=== PATIENT | male | born 1940 | race Caucasian/White ===

== ENCOUNTER → 2016-11-22 | Outpatient (CLI) | payer MEDICARE, BC ==
[2015-11-20 10:25] VITALS: BP 134/81
[~2016-11-22] MED LIST: ADULT LOW DOSE81 MG PO; CARDURA4 M1 PO; CYCLOBENZAPRINE10 M1 PO; FISH OIL1 IU PO; FLUTICASON0.05 MG/AC NS; FOSINOPRIL SODI PO; NIACIN500 M6 PO; OSTEO-BI-FLEX 21 TAB PO; PRILOSEC40 M1 PO; VESICARE10 MG PO; ZYLOPRIM 100MG100 MG PO
== END ==
LOC: LAB 09:00
DX: C61 Malignant neoplasm of prostate (principal); I10 Essential (primary) hypertension; E78.2 Mixed hyperlipidemia; N52.9 Male erectile dysfunction, unspecified; R20.2 Paresthesia of skin; M10.09 Idiopathic gout, multiple sites

== ENCOUNTER → 2016-11-25 | Outpatient (CLI) | payer MEDICARE, BC ==
[~2016-11-25] VITALS: Ht 182.9 cm; Wt 100.0 kg
[2016-11-25 10:38] VITALS: BP 131/86
== END ==
LOC: AMSURD 10:30
DX: I49.3 Ventricular premature depolarization (principal)

== ENCOUNTER → 2016-11-29 | Outpatient (CLI) | payer MEDICARE, BC ==
[2016-11-25 10:38] VITALS: BP 131/86
== END ==
LOC: LAB 11:33
DX: Z12.11 Encounter for screening for malignant neoplasm of colon (principal)

== ENCOUNTER → 2016-12-20 | Outpatient (CLI) | payer MEDICARE, BC ==
[2016-11-25 10:38] VITALS: BP 131/86
== END ==
LOC: RAD 14:21
DX: M54.12 Radiculopathy, cervical region (principal)

== ENCOUNTER → 2017-06-20 | Outpatient (CLI) | payer MEDICARE, BC ==
[2016-11-25 10:38] VITALS: BP 131/86
[2017-06-20 09:17] LABS: EOS # 0.4 (0.04-0.40); HEMATOCRIT 46.1 % (42.0-52.0); LYMPH# 1.3 (1.50-4.00); MEAN CELL VOLUME 100 fl (78-100); MEAN CORPUSCULAR HEMOGLOBIN 35 pg (27-31); MEAN CORPUSCULAR HGB CONC 35 g/dL (33-37); MEAN PLATELET VOLUME 10.3 fl (7.4-10.4); MONO # 0.5 (0.20-0.80); NEU # 4.2 (1.40-6.50); PLATELET COUNT 201 K/mm3 (130-400); RED BLOOD COUNT 4.59 M/mm3 (4.20-5.60); RED CELL DISTRIBUTION WIDTH 12.1 % (11.5-14.5); WHITE BLOOD COUNT 6.4 K/mm3 (4.8-10.8)
[2017-06-20 09:27] LABS: ALBUMIN 4.3 g/dL (3.5-5.0); BUN/CREATININE RATIO 18.6 (6.0-26.0); CALCIUM 9.7 mg/dL (8.4-10.2); EOS % 5.9 % (0.0-4.0); POTASSIUM 4.1 mmol/L (3.6-5.0); TOTAL BILIRUBIN 0.8 mg/dL (0.2-1.3)
[2017-06-20 10:29] LABS: ERYTHROCYTE SEDIMENTATION RATE 3 mm/hr (0-20)
== END ==
LOC: LAB 08:54
PROVIDERS: Internal Medicine
DX: C61 Malignant neoplasm of prostate (principal); M54.12 Radiculopathy, cervical region; I10 Essential (primary) hypertension

== ENCOUNTER → 2017-08-02 | Outpatient (CLI) | payer MEDICARE, BC ==
[~2017-08-02] VITALS: Ht 182.9 cm; Wt 100.0 kg
[2017-08-02 16:22] LABS: EOS # 0.4 (0.04-0.40); HEMATOCRIT 45.4 % (42.0-52.0); HEMOGLOBIN 15.5 g/dL (13.5-18.0); LYMPH# 1.5 (1.50-4.00); MEAN CELL VOLUME 99 fl (78-100); MEAN CORPUSCULAR HEMOGLOBIN 34 pg (27-31); MEAN CORPUSCULAR HGB CONC 34 g/dL (33-37); MEAN PLATELET VOLUME 10.2 fl (7.4-10.4); MONO # 0.6 (0.20-0.80); NEU # 4.4 (1.40-6.50); PLATELET COUNT 203 K/mm3 (130-400); RED BLOOD COUNT 4.57 M/mm3 (4.20-5.60); RED CELL DISTRIBUTION WIDTH 12.6 % (11.5-14.5); WHITE BLOOD COUNT 6.9 K/mm3 (4.8-10.8)
[2017-08-02 16:26] LABS: EOS % 5.8 % (0.0-4.0)
[2017-08-02 16:33] VITALS: BP 153/96
[2017-08-02 16:43] LABS: ALBUMIN 4.2 g/dL (3.5-5.0); BUN/CREATININE RATIO 12.7 (6.0-26.0); CALCIUM 9.3 mg/dL (8.4-10.2); POTASSIUM 3.7 mmol/L (3.6-5.0); TOTAL BILIRUBIN 0.3 mg/dL (0.2-1.3); TOTAL PROTEIN 7.8 g/dL (6.3-8.2)
[2017-08-02 20:07] LABS: URINE APPEARANCE CLEAR; URINE BILIRUBIN NEGATIVE (NEGATIVE); URINE BLOOD NEGATIVE (NEGATIVE); URINE COLOR YELLOW; URINE GLUCOSE NEGATIVE (NEGATIVE); URINE KETONE NEGATIVE (NEGATIVE); URINE LEUKOCYTE ESTERASE NEGATIVE (NEGATIVE); URINE NITRATE NEGATIVE (NEGATIVE); URINE PROTEIN(semi-quant) NEGATIVE (NEGATIVE); URINE UROBILINOGEN NORMAL (NORMAL); URINE WBC 0-1 /hpf (0-3)
[2017-08-02 20:09] LABS: URINE MUCUS PRESENT (NOT PRESENT)
== END ==
LOC: RAD 15:58
PROVIDERS: Internal Medicine
DX: Z01.818 Encounter for other preprocedural examination (principal); K40.90 Unilateral inguinal hernia, without obstruction or gangrene, not specified as recurrent

== ENCOUNTER → 2017-12-16 | Outpatient (CLI) | payer MEDICARE, BC ==
[2017-08-02 16:33] VITALS: BP 153/96
[2017-12-16 09:25] LABS: HEMATOCRIT 43.2 % (42.0-52.0); HEMOGLOBIN 15.1 g/dL (13.5-18.0); MEAN CELL VOLUME 100 fl (78-100); MEAN CORPUSCULAR HEMOGLOBIN 35 pg (27-31); MEAN CORPUSCULAR HGB CONC 35 g/dL (33-37); PLATELET COUNT 236 K/mm3 (130-400); RED BLOOD COUNT 4.31 M/mm3 (4.20-5.60); RED CELL DISTRIBUTION WIDTH 12.2 % (11.5-14.5)
[2017-12-16 09:34] LABS: ALBUMIN 4.2 g/dL (3.5-5.0); CALCIUM 9.5 mg/dL (8.4-10.2); POTASSIUM 3.9 mmol/L (3.6-5.0); TOTAL BILIRUBIN 0.5 mg/dL (0.2-1.3); TOTAL PROTEIN 7.9 g/dL (6.3-8.2)
[2017-12-16 09:47] LABS: LYMPHOCYTE 17 % (20-51); MONOCYTE 12 % (3-10); NEUTROPHILS 66 % (42-75)
[2017-12-16 11:09] LABS: ERYTHROCYTE SEDIMENTATION RATE 27 mm/hr (0-20)
== END ==
LOC: LAB 08:42
PROVIDERS: Internal Medicine
DX: Z12.11 Encounter for screening for malignant neoplasm of colon (principal); C61 Malignant neoplasm of prostate; E78.5 Hyperlipidemia, unspecified; I10 Essential (primary) hypertension; R20.2 Paresthesia of skin; M10.9 Gout, unspecified

== ENCOUNTER → 2018-12-25 | Outpatient (CLI) | payer MEDICARE, BC ==
[2017-08-02 16:33] VITALS: BP 153/96
[2018-12-25 09:43] LABS: POTASSIUM 4.1 mmol/L (3.5-5.1)
[2018-12-25 09:45] LABS: CALCIUM 9.6 mg/dL (8.3-10.5)
[2018-12-25 09:46] LABS: TOTAL PROTEIN 7.1 g/dL (6.2-8.1)
[2018-12-25 09:48] LABS: TOTAL BILIRUBIN 0.7 mg/dL (0.2-1.2)
[2018-12-25 10:50] LABS: URINE APPEARANCE CLEAR; URINE BILIRUBIN NEGATIVE (NEGATIVE); URINE BLOOD NEGATIVE (NEGATIVE); URINE COLOR YELLOW; URINE GLUCOSE NEGATIVE (NEGATIVE); URINE KETONE NEGATIVE (NEGATIVE); URINE LEUKOCYTE ESTERASE NEGATIVE (NEGATIVE); URINE NITRATE NEGATIVE (NEGATIVE); URINE PROTEIN(semi-quant) NEGATIVE (NEGATIVE); URINE UROBILINOGEN NORMAL (NORMAL)
[2018-12-25 10:51] LABS: URINE MUCUS PRESENT (NOT PRESENT)
== END ==
LOC: LAB 09:07
PROVIDERS: Internal Medicine
DX: Z12.11 Encounter for screening for malignant neoplasm of colon (principal); D50.9 Iron deficiency anemia, unspecified; C61 Malignant neoplasm of prostate; I10 Essential (primary) hypertension; M10.9 Gout, unspecified; E78.5 Hyperlipidemia, unspecified; R20.2 Paresthesia of skin

== ENCOUNTER → 2018-12-29 | Outpatient (CLI) | payer MEDICARE, BC ==
[2017-08-02 16:33] VITALS: BP 153/96
== END ==
LOC: LAB 10:07
DX: I10 Essential (primary) hypertension (principal); E78.5 Hyperlipidemia, unspecified; D50.9 Iron deficiency anemia, unspecified

== ENCOUNTER → 2019-03-16 | Outpatient (CLI) | payer MEDICARE, BC ==
[2019-03-14 11:44] VITALS: BP 128/77
[~2019-03-16] MED LIST changes: +FOSINOPRIL SODIUM; +PROTONIX TR40 M1 PO; +[UNRECOGNIZED DRUG - OTHER]
[2019-03-16 08:45] LABS: EOS # 0.4 (0.04-0.40); HEMATOCRIT 27.4 % (42.0-52.0); HEMOGLOBIN 9.4 g/dL (13.5-18.0); LYMPH# 1.3 (1.50-4.00); MEAN CELL VOLUME 101 fl (78-100); MEAN CORPUSCULAR HEMOGLOBIN 35 pg (27-31); MEAN CORPUSCULAR HGB CONC 34 g/dL (33-37); MEAN PLATELET VOLUME 9.8 fl (7.4-10.4); MONO # 0.6 (0.20-0.80); NEU # 4.8 (1.40-6.50); PLATELET COUNT 221 K/mm3 (130-400); RED BLOOD COUNT 2.72 M/mm3 (4.20-5.60); RED CELL DISTRIBUTION WIDTH 12.7 % (11.5-14.5)
[2019-03-16 08:54] LABS: EOS % 5.3 % (0.0-4.0)
[2019-03-16 09:42] LABS: POTASSIUM 3.2 mmol/L (3.5-5.1)
[2019-03-16 09:44] LABS: CALCIUM 9.1 mg/dL (8.3-10.5)
[2019-03-16 09:45] LABS: TOTAL PROTEIN 6.2 g/dL (6.2-8.1)
[2019-03-16 09:47] LABS: TOTAL BILIRUBIN 0.4 mg/dL (0.2-1.2)
== END ==
LOC: LAB 08:32
PROVIDERS: Internal Medicine
DX: C61 Malignant neoplasm of prostate (principal); I10 Essential (primary) hypertension; K92.1 Melena

== ENCOUNTER → 2019-04-16 | Outpatient (CLI) | payer MEDICARE, BC ==
[2019-03-14 11:44] VITALS: BP 128/77
[2019-04-16 09:18] LABS: EOS # 0.2 (0.04-0.40); HEMATOCRIT 35.4 % (42.0-52.0); HEMOGLOBIN 11.6 g/dL (13.5-18.0); LYMPH# 1.1 (1.50-4.00); MEAN CELL VOLUME 99 fl (78-100); MEAN CORPUSCULAR HEMOGLOBIN 33 pg (27-31); MEAN CORPUSCULAR HGB CONC 33 g/dL (33-37); MONO # 0.4 (0.20-0.80); NEU # 5.3 (1.40-6.50); PLATELET COUNT 400 K/mm3 (130-400); RED BLOOD COUNT 3.57 M/mm3 (4.20-5.60); RED CELL DISTRIBUTION WIDTH 12.6 % (11.5-14.5)
[2019-04-16 09:25] LABS: ALBUMIN 4.3 g/dL (3.4-4.8); POTASSIUM 3.6 mmol/L (3.5-5.1)
[2019-04-16 09:27] LABS: CALCIUM 9.7 mg/dL (8.3-10.5)
[2019-04-16 09:28] LABS: TOTAL PROTEIN 7.6 g/dL (6.2-8.1)
[2019-04-16 09:30] LABS: TOTAL BILIRUBIN 0.4 mg/dL (0.2-1.2)
== END ==
LOC: LAB 09:03
PROVIDERS: Internal Medicine
DX: I10 Essential (primary) hypertension (principal); C61 Malignant neoplasm of prostate; K92.1 Melena

== ENCOUNTER → 2019-06-22 | Outpatient (CLI) | payer MEDICARE, BC ==
[2019-03-14 11:44] VITALS: BP 128/77
[2019-06-22 09:11] LABS: EOS # 0.3 (0.04-0.40); EOS % 4.3 % (0.0-4.0); HEMATOCRIT 42.3 % (42.0-52.0); HEMOGLOBIN 13.8 g/dL (13.5-18.0); LYMPH# 1.2 (1.50-4.00); MEAN CELL VOLUME 93 fl (78-100); MEAN CORPUSCULAR HEMOGLOBIN 30 pg (27-31); MEAN CORPUSCULAR HGB CONC 33 g/dL (33-37); MEAN PLATELET VOLUME 9.4 fl (7.4-10.4); MONO # 0.7 (0.20-0.80); NEU # 4.1 (1.40-6.50); PLATELET COUNT 259 K/mm3 (130-400); RED BLOOD COUNT 4.54 M/mm3 (4.20-5.60); RED CELL DISTRIBUTION WIDTH 14.3 % (11.5-14.5); WHITE BLOOD COUNT 6.2 K/mm3 (4.8-10.8)
[2019-06-22 09:14] LABS: POTASSIUM 3.7 mmol/L (3.5-5.1)
[2019-06-22 09:15] LABS: ALBUMIN 4.1 g/dL (3.4-4.8)
[2019-06-22 09:16] LABS: CALCIUM 9.4 mg/dL (8.3-10.5)
[2019-06-22 09:17] LABS: TOTAL PROTEIN 7.5 g/dL (6.2-8.1)
[2019-06-22 09:19] LABS: PH-URINE 6.5 (5.0 - 8.0); TOTAL BILIRUBIN 0.6 mg/dL (0.2-1.2); URINE APPEARANCE CLEAR; URINE BILIRUBIN NEGATIVE (NEGATIVE); URINE BLOOD NEGATIVE (NEGATIVE); URINE COLOR YELLOW; URINE GLUCOSE NEGATIVE (NEGATIVE); URINE KETONE NEGATIVE (NEGATIVE); URINE LEUKOCYTE ESTERASE NEGATIVE (NEGATIVE); URINE MUCUS PRESENT (NOT PRESENT); URINE NITRATE NEGATIVE (NEGATIVE); URINE PROTEIN(semi-quant) TRACE mg/dL (NEGATIVE); URINE UROBILINOGEN NORMAL (NORMAL); URINE WBC 0-1 /hpf (0-3)
[2019-06-22 10:13] LABS: ERYTHROCYTE SEDIMENTATION RATE 9 mm/hr (0-20)
== END ==
LOC: LAB 08:55
PROVIDERS: Internal Medicine
DX: M10.09 Idiopathic gout, multiple sites (principal); I10 Essential (primary) hypertension; C61 Malignant neoplasm of prostate; Z12.11 Encounter for screening for malignant neoplasm of colon; E78.5 Hyperlipidemia, unspecified

== ENCOUNTER → 2019-06-26 | Outpatient (CLI) | payer MEDICARE, BC ==
[2019-03-14 11:44] VITALS: BP 128/77
== END ==
LOC: LAB 10:08
DX: Z12.11 Encounter for screening for malignant neoplasm of colon (principal); M10.09 Idiopathic gout, multiple sites; I10 Essential (primary) hypertension

== ENCOUNTER → 2019-06-28 | Outpatient (CLI) | payer MEDICARE, BC ==
[2019-03-14 11:44] VITALS: BP 128/77
== END ==
LOC: RAD 11:17
DX: M19.071 Primary osteoarthritis, right ankle and foot (principal); M10.9 Gout, unspecified; M77.9 Enthesopathy, unspecified

== ENCOUNTER → 2020-01-04 | Outpatient (CLI) | payer MEDICARE, BC ==
[2019-03-14 11:44] VITALS: BP 128/77
[2020-01-04 12:06] LABS: EOS # 0.3 (0.04-0.40); EOS % 3.5 % (0.0-4.0); HEMATOCRIT 44.4 % (42.0-52.0); HEMOGLOBIN 15.2 g/dL (13.5-18.0); LYMPH# 1.3 (1.50-4.00); MEAN CELL VOLUME 99 fl (78-100); MEAN CORPUSCULAR HEMOGLOBIN 34 pg (27-31); MEAN CORPUSCULAR HGB CONC 34 g/dL (33-37); MONO # 0.6 (0.20-0.80); NEU # 5.6 (1.40-6.50); PLATELET COUNT 276 K/mm3 (130-400); RED CELL DISTRIBUTION WIDTH 13.4 % (11.5-14.5); WHITE BLOOD COUNT 7.8 K/mm3 (4.8-10.8)
[2020-01-04 12:14] LABS: URINE APPEARANCE CLEAR; URINE BILIRUBIN NEGATIVE (NEGATIVE); URINE BLOOD NEGATIVE (NEGATIVE); URINE COLOR YELLOW; URINE GLUCOSE NEGATIVE (NEGATIVE); URINE KETONE NEGATIVE (NEGATIVE); URINE LEUKOCYTE ESTERASE NEGATIVE (NEGATIVE); URINE NITRATE NEGATIVE (NEGATIVE); URINE PROTEIN(semi-quant) TRACE mg/dL (NEGATIVE); URINE UROBILINOGEN NORMAL (NORMAL); URINE WBC 0-1 /hpf (0-3)
[2020-01-04 12:18] LABS: CALCIUM 9.5 mg/dL (8.3-10.5)
[2020-01-04 12:20] LABS: TOTAL PROTEIN 7.5 g/dL (6.2-8.1)
[2020-01-04 12:22] LABS: TOTAL BILIRUBIN 0.4 mg/dL (0.2-1.2)
[2020-01-04 13:03] LABS: ERYTHROCYTE SEDIMENTATION RATE 27 mm/hr (0-20)
== END ==
LOC: LAB 11:50
PROVIDERS: Internal Medicine
DX: Z12.11 Encounter for screening for malignant neoplasm of colon (principal); I10 Essential (primary) hypertension; K92.1 Melena; C61 Malignant neoplasm of prostate; M10.09 Idiopathic gout, multiple sites; E78.5 Hyperlipidemia, unspecified

== ENCOUNTER → 2020-01-14 | Outpatient (CLI) | payer MEDICARE, BC ==
[2019-03-14 11:44] VITALS: BP 128/77
== END ==
LOC: LAB 10:15
DX: Z12.11 Encounter for screening for malignant neoplasm of colon (principal); I10 Essential (primary) hypertension; K92.1 Melena; C61 Malignant neoplasm of prostate

== ENCOUNTER → 2020-04-29 | Outpatient (CLI) | payer MEDICARE, BC ==
[2019-03-14 11:44] VITALS: BP 128/77
[2020-04-29 09:28] LABS: URINE WBC 0 /hpf (0-3)
[2020-04-29 09:38] LABS: EOS # 0.3 (0.04-0.40); EOS % 4.4 % (0.0-4.0); HEMATOCRIT 48.2 % (42.0-52.0); HEMOGLOBIN 16.5 g/dL (13.5-18.0); LYMPH# 1.2 (1.50-4.00); MEAN CELL VOLUME 101 fl (78-100); MEAN CORPUSCULAR HEMOGLOBIN 35 pg (27-31); MEAN CORPUSCULAR HGB CONC 34 g/dL (33-37); MEAN PLATELET VOLUME 9.6 fl (7.4-10.4); MONO # 0.6 (0.20-0.80); NEU # 4.3 (1.40-6.50); PLATELET COUNT 227 K/mm3 (130-400); RED BLOOD COUNT 4.78 M/mm3 (4.20-5.60); RED CELL DISTRIBUTION WIDTH 13.3 % (11.5-14.5); WHITE BLOOD COUNT 6.4 K/mm3 (4.8-10.8)
[2020-04-29 09:46] LABS: ALBUMIN 4.2 g/dL (3.4-4.8)
[2020-04-29 09:47] LABS: CALCIUM 9.6 mg/dL (8.3-10.5)
[2020-04-29 09:48] LABS: TOTAL PROTEIN 7.5 g/dL (6.2-8.1)
[2020-04-29 09:50] LABS: TOTAL BILIRUBIN 0.5 mg/dL (0.2-1.2)
[2020-04-29 09:55] LABS: MAGNESIUM 1.72 mg/dL (1.60-2.60)
[2020-04-29 10:10] LABS: URINE APPEARANCE CLEAR; URINE BILIRUBIN NEGATIVE (NEGATIVE); URINE BLOOD NEGATIVE (NEGATIVE); URINE COLOR YELLOW; URINE GLUCOSE NEGATIVE (NEGATIVE); URINE KETONE NEGATIVE (NEGATIVE); URINE LEUKOCYTE ESTERASE NEGATIVE (NEGATIVE); URINE MUCUS PRESENT (NOT PRESENT); URINE NITRATE NEGATIVE (NEGATIVE); URINE PROTEIN(semi-quant) NEGATIVE (NEGATIVE); URINE UROBILINOGEN NORMAL (NORMAL)
[2020-04-29 10:19] LABS: PROTHROMBIN TIME 10.2 SECONDS (9.0-12.0)
== END ==
LOC: AMSURD 09:17
PROVIDERS: Internal Medicine
DX: Z01.818 Encounter for other preprocedural examination (principal); I44.0 Atrioventricular block, first degree

== ENCOUNTER → 2020-12-31 | Outpatient (CLI) | payer MEDICARE, BC ==
[2020-12-31 09:06] LABS: BASO # 0.03 (0.02-0.10); EOS # 0.29 (0.04-0.40); EOS % 4.6 % (0.0-4.0); HEMATOCRIT 46.1 % (42.0-52.0); HEMOGLOBIN 15.8 g/dL (13.5-18.0); LYMPH# 1.39 (1.50-4.00); MEAN CELL VOLUME 101 fl (78-100); MEAN CORPUSCULAR HEMOGLOBIN 35 pg (27-31); MEAN CORPUSCULAR HGB CONC 34 g/dL (33-37); MEAN PLATELET VOLUME 9.2 fl (7.4-10.4); MONO # 0.61 (0.20-0.80); NEU # 3.95 (1.40-6.50); PLATELET COUNT 199 K/mm3 (130-400); RED BLOOD COUNT 4.56 M/mm3 (4.20-5.60); RED CELL DISTRIBUTION WIDTH 13.3 % (11.5-14.5); WHITE BLOOD COUNT 6.3 K/mm3 (4.8-10.8)
[2020-12-31 09:14] LABS: POTASSIUM 4.4 mmol/L (3.5-5.1)
[2020-12-31 09:15] LABS: ALBUMIN 3.9 g/dL (3.4-4.8)
[2020-12-31 09:16] LABS: CALCIUM 9.6 mg/dL (8.3-10.5)
[2020-12-31 09:19] LABS: TOTAL BILIRUBIN 0.8 mg/dL (0.2-1.2)
[2020-12-31 12:52] LABS: ERYTHROCYTE SEDIMENTATION RATE 3 mm/hr (0-20)
[2020-12-31 22:36] LABS: TESTOSTERONE 399 ng/dL (221-716)
== END ==
LOC: LAB 08:38
PROVIDERS: Internal Medicine
DX: C61 Malignant neoplasm of prostate (principal); I10 Essential (primary) hypertension; E78.2 Mixed hyperlipidemia; F52.21 Male erectile disorder; M10.00 Idiopathic gout, unspecified site; K90.9 Intestinal malabsorption, unspecified

== ENCOUNTER → 2021-01-06 | Outpatient (CLI) | payer MEDICARE, BC | LOC: AMSURD 11:37 | DX: I49.3 Ventricular premature depolarization (principal) ==

== ENCOUNTER → 2021-03-10 | Outpatient (CLI) | payer MEDICARE, BC | LOC: LAB 11:17 | DX: K90.9 Intestinal malabsorption, unspecified (principal) ==

== ENCOUNTER → 2021-12-25 | Outpatient (CLI) | payer MEDICARE, BC ==
[2021-12-25 10:26] LABS: BASO # 0.06 K/mm3 (0.02-0.10); EOS % 5.9 % (0.0-4.0); HEMATOCRIT 45.5 % (42.0-52.0); HEMOGLOBIN 15.8 g/dL (13.5-18.0); LYMPH# 1.17 K/mm3 (1.50-4.00); MEAN CELL VOLUME 103 fl (78-100); MEAN CORPUSCULAR HEMOGLOBIN 36 pg (27-31); MEAN CORPUSCULAR HGB CONC 35 g/dL (33-37); MEAN PLATELET VOLUME 9.7 fl (7.4-10.4); MONO # 0.55 K/mm3 (0.20-0.80); NEU # 4.62 K/mm3 (1.40-6.50); PLATELET COUNT 214 K/mm3 (130-400); RED BLOOD COUNT 4.44 M/mm3 (4.20-5.60); RED CELL DISTRIBUTION WIDTH 13.2 % (11.5-14.5); WHITE BLOOD COUNT 6.8 K/mm3 (4.8-10.8)
[2021-12-25 11:15] LABS: POTASSIUM 3.7 mmol/L (3.5-5.1)
[2021-12-25 11:16] LABS: ALBUMIN 4.1 g/dL (3.4-4.8)
[2021-12-25 11:17] LABS: CALCIUM 9.6 mg/dL (8.3-10.5)
[2021-12-25 11:18] LABS: TOTAL PROTEIN 7.2 g/dL (6.2-8.1)
[2021-12-25 11:20] LABS: TOTAL BILIRUBIN 1.1 mg/dL (0.2-1.2)
[2021-12-25 11:24] LABS: MAGNESIUM 1.71 mg/dL (1.60-2.60)
[2021-12-25 11:53] LABS: ERYTHROCYTE SEDIMENTATION RATE 8 mm/hr (0-20)
== END ==
LOC: LAB 09:08
PROVIDERS: Internal Medicine
DX: Z12.11 Encounter for screening for malignant neoplasm of colon (principal); C61 Malignant neoplasm of prostate; I10 Essential (primary) hypertension; E61.1 Iron deficiency; K90.9 Intestinal malabsorption, unspecified; E78.2 Mixed hyperlipidemia; M10.00 Idiopathic gout, unspecified site; E53.8 Deficiency of other specified B group vitamins

== ENCOUNTER → 2022-01-08 | Outpatient (CLI) | payer MEDICARE, BC | LOC: LAB 10:01 | DX: Z12.11 Encounter for screening for malignant neoplasm of colon (principal); C61 Malignant neoplasm of prostate; M54.12 Radiculopathy, cervical region; I10 Essential (primary) hypertension; I49.3 Ventricular premature depolarization ==

== ENCOUNTER → 2022-01-13 | Outpatient (CLI) | payer MEDICARE, BC | LOC: LAB 11:44 | DX: Z12.11 Encounter for screening for malignant neoplasm of colon (principal); M54.12 Radiculopathy, cervical region; I10 Essential (primary) hypertension; C61 Malignant neoplasm of prostate; I49.3 Ventricular premature depolarization ==

== ENCOUNTER → 2023-06-20 | Outpatient (CLI) | payer MEDICARE, BC ==
[2023-06-20 11:26] LABS: BASO # 0.04 K/mm3 (0.02-0.10); EOS # 0.32 K/mm3 (0.04-0.40); EOS % 3.7 % (0.0-4.0); HEMATOCRIT 46.7 % (42.0-52.0); HEMOGLOBIN 16.1 g/dL (13.5-18.0); LYMPH# 1.45 K/mm3 (1.50-4.00); MEAN CELL VOLUME 102 fl (78-100); MEAN CORPUSCULAR HEMOGLOBIN 35 pg (27-31); MEAN CORPUSCULAR HGB CONC 35 g/dL (33-37); MEAN PLATELET VOLUME 8.9 fl (7.4-10.4); MONO # 0.55 K/mm3 (0.20-0.80); NEU # 6.17 K/mm3 (1.40-6.50); PLATELET COUNT 226 K/mm3 (130-400); RED BLOOD COUNT 4.56 M/mm3 (4.20-5.60); RED CELL DISTRIBUTION WIDTH 12.9 % (11.5-14.5); WHITE BLOOD COUNT 8.6 K/mm3 (4.8-10.8)
[2023-06-20 11:33] LABS: ALBUMIN 4.2 g/dL (3.4-4.8)
[2023-06-20 11:34] LABS: CALCIUM 9.9 mg/dL (8.3-10.5)
[2023-06-20 11:36] LABS: TOTAL PROTEIN 7.3 g/dL (6.2-8.1)
[2023-06-20 11:42] LABS: MAGNESIUM 1.74 mg/dL (1.60-2.60)
== END ==
LOC: LAB 11:14
PROVIDERS: Internal Medicine
DX: I10 Essential (primary) hypertension (principal)

== ENCOUNTER → 2023-06-27 | Outpatient (CLI) | payer MEDICARE, BC | LOC: VAS 09:26 → RAD 16:00 | DX: I49.3 Ventricular premature depolarization (principal) ==

== ENCOUNTER → 2023-07-08 | Outpatient (CLI) | payer MEDICARE, BC ==
[~2023-07-08] VITALS: Ht 175.3 cm; Wt 87.5 kg
== END ==
LOC: CARDREHAB 08:02
DX: I49.3 Ventricular premature depolarization (principal)
CPT/HCPCS: A9500; J2785

== ENCOUNTER → 2024-01-11 | Outpatient (CLI) | payer MEDICARE, BC ==
[2024-01-11 09:58] LABS: BASO # 0.03 K/mm3 (0.02-0.10); EOS % 4.2 % (0.0-4.0); HEMATOCRIT 46.4 % (42.0-52.0); HEMOGLOBIN 16.1 g/dL (13.5-18.0); LYMPH# 1.38 K/mm3 (1.50-4.00); MEAN CELL VOLUME 102 fl (78-100); MEAN CORPUSCULAR HEMOGLOBIN 35 pg (27-31); MEAN CORPUSCULAR HGB CONC 35 g/dL (33-37); MONO # 0.54 K/mm3 (0.20-0.80); NEU # 4.85 K/mm3 (1.40-6.50); PLATELET COUNT 208 K/mm3 (130-400); RED BLOOD COUNT 4.56 M/mm3 (4.20-5.60); RED CELL DISTRIBUTION WIDTH 12.9 % (11.5-14.5); WHITE BLOOD COUNT 7.1 K/mm3 (4.8-10.8)
[2024-01-11 10:12] LABS: TOTAL PROTEIN 6.9 g/dL (6.2-8.1)
[2024-01-11 10:14] LABS: TOTAL BILIRUBIN 1.1 mg/dL (0.2-1.2)
[2024-01-11 10:19] LABS: MAGNESIUM 1.76 mg/dL (1.60-2.60)
== END ==
LOC: LAB 09:41
PROVIDERS: Internal Medicine
DX: Z12.11 Encounter for screening for malignant neoplasm of colon (principal); I10 Essential (primary) hypertension; C61 Malignant neoplasm of prostate; E78.2 Mixed hyperlipidemia; M10.00 Idiopathic gout, unspecified site; R73.9 Hyperglycemia, unspecified; K90.9 Intestinal malabsorption, unspecified

== ENCOUNTER → 2024-01-19 | Outpatient (CLI) | payer MEDICARE, BC | LOC: LAB 09:43 | DX: Z12.11 Encounter for screening for malignant neoplasm of colon (principal); C61 Malignant neoplasm of prostate; I10 Essential (primary) hypertension; E78.2 Mixed hyperlipidemia; M10.00 Idiopathic gout, unspecified site; R73.9 Hyperglycemia, unspecified; K90.9 Intestinal malabsorption, unspecified ==